=== PATIENT | female | born 2000 | race African-American/Black ===

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

== ENCOUNTER 2020-01-11 15:02 | Outpatient (CLI) | payer MEDICAID ==
[2019-10-11 19:20] VITALS: BMI 35.6
[~2020-01-11 15:02] MED LIST changes: +MACROBID100 MG PO
[2020-01-11 15:40] LABS: BASOPHILS 0.1 % (0-2); EOSINOPHILS 1.3 % (0-7); HEMATOCRIT 27.9 % (36.0-48.0); IMMATURE GRANULOCYTES 0.3 % (0-5); LYMPHOCYTES 21.5 % (15-50); MCH 29.5 pg (26.0-34.0); MCHC 32.3 g/dL (31.0-37.0); MCV 91.5 fL (80.0-100.0); MONOCYTES 6.6 % (2-11); NEUTROPHILS 70.2 % (40-80); PLATELET COUNT 226 10x3/uL (130-400); RBC 3.05 10x6/uL (4.00-5.40); RDW 13.6 % (11.5-14.5); WBC 6.8 10x3/uL (4.8-10.8)
[2020-01-11 15:44] LABS: CALC OSMOLALITY 270 mosm/kg (275-300); CALCIUM 8.3 mg/dL (8.5-10.1); CARBON DIOXIDE 26.1 mmol/L (21.0-32.0); CHLORIDE - SERUM 104 mmol/L (98-107); CREATININE - SERUM 0.6 mg/dL (0.6-1.3); GLUCOSE 86 mg/dL (74-106); POTASSIUM - SERUM 3.2 mmol/L (3.5-5.1); SODIUM 138 mmol/L (136-145); UREA NITROGEN 2 mg/dL (7-18); eGFR NON AFRICAN AMERICAN > 90 mL/min (90-120)
[2020-01-11 15:50] LABS: ALKALINE PHOSPHATASE 62 U/L (30-120); ALT (SGPT) 13 U/L (10-68); BILIRUBIN - INDIRECT 0.17 mg/dL (0.00-1.00); BILIRUBIN - TOTAL 0.22 mg/dL (0.2-1.3); PROTEIN - SERUM 7.1 g/dL (6.4-8.2); URIC ACID 3.3 mg/dL (2.6-7.2)
[2020-01-11 15:51] LABS: BILIRUBIN - DIRECT 0.05 mg/dL (0.00-0.30)
[2020-01-13 13:02] LABS: PROTEIN - URINE 12.7 mg/dL (0.0-11.9)
== END 2020-01-11 17:01 | disposition home or self-care (01) ==
LOC: D.LDO 15:02
PROVIDERS: ATTEND Obstetrics & Gynecology
DX: O26.899 Other specified pregnancy related conditions, unspecified trimester (principal); Z3A.00 Weeks of gestation of pregnancy not specified

== ENCOUNTER 2020-02-16 09:49 | Outpatient (CLI) | payer MEDICAID ==
[2019-10-11 19:20] VITALS: BMI 35.6
== END 2020-02-16 11:05 | disposition home or self-care (01) ==
LOC: D.LDO 09:49
PROVIDERS: ATTEND Obstetrics & Gynecology
DX: O14.03 Mild to moderate pre-eclampsia, third trimester (principal); Z3A.30 30 weeks gestation of pregnancy

== ENCOUNTER 2020-02-20 14:17 | Outpatient (CLI) | payer MEDICAID ==
[2019-10-11 19:20] VITALS: BMI 35.6
== END 2020-02-20 15:19 | disposition home or self-care (01) ==
LOC: D.LDO 14:17
PROVIDERS: ATTEND Obstetrics & Gynecology
DX: O26.893 Other specified pregnancy related conditions, third trimester (principal); Z3A.31 31 weeks gestation of pregnancy; R03.0 Elevated blood-pressure reading, without diagnosis of hypertension

== ENCOUNTER 2020-02-23 12:08 | Outpatient (CLI) | payer MEDICAID ==
[2019-10-11 19:20] VITALS: BMI 35.6
== END 2020-02-23 12:58 ==
LOC: D.LDO 12:08
PROVIDERS: ATTEND Obstetrics & Gynecology
DX: O13.3 Gestational [pregnancy-induced] hypertension without significant proteinuria, third trimester (principal); Z3A.31 31 weeks gestation of pregnancy

== ENCOUNTER 2020-02-29 14:39 | Outpatient (CLI) | payer MEDICAID ==
[2019-10-11 19:20] VITALS: BMI 35.6
== END 2020-02-29 14:42 | disposition home or self-care (01) ==
LOC: D.LDO 14:39
PROVIDERS: ATTEND Obstetrics & Gynecology
DX: O16.3 Unspecified maternal hypertension, third trimester (principal); Z3A.32 32 weeks gestation of pregnancy

== ENCOUNTER 2020-03-04 15:27 | Outpatient (CLI) | payer MEDICAID ==
[2019-10-11 19:20] VITALS: BMI 35.6
== END 2020-03-04 17:00 | disposition home or self-care (01) ==
LOC: D.LDO 15:27
PROVIDERS: ATTEND Obstetrics & Gynecology
DX: O16.3 Unspecified maternal hypertension, third trimester (principal); Z3A.33 33 weeks gestation of pregnancy

== ENCOUNTER 2020-03-07 16:00 | Outpatient (CLI) | payer MEDICAID ==
[2019-10-11 19:20] VITALS: BMI 35.6
== END 2020-03-07 16:57 | disposition home or self-care (01) ==
LOC: D.LDO 16:00
PROVIDERS: ATTEND Obstetrics & Gynecology
DX: O24.419 Gestational diabetes mellitus in pregnancy, unspecified control (principal)

== ENCOUNTER → 2020-03-08 16:37 | Outpatient (CLI) | payer MEDICAID ==
[2019-10-11 19:20] VITALS: BMI 35.6
== END | disposition home or self-care (01) ==
LOC: D.LDO 16:37
PROVIDERS: ATTEND Obstetrics & Gynecology
DX: O26.899 Other specified pregnancy related conditions, unspecified trimester (principal)

== ENCOUNTER → 2020-03-11 13:19 | Outpatient (CLI) | payer MEDICAID ==
[2019-10-11 19:20] VITALS: BMI 35.6
== END | disposition home or self-care (01) ==
LOC: D.LDO 13:19
PROVIDERS: ATTEND Obstetrics & Gynecology
DX: O10.919 Unspecified pre-existing hypertension complicating pregnancy, unspecified trimester (principal)

== ENCOUNTER 2020-03-14 10:15 | Outpatient (CLI) | payer MEDICAID ==
[2019-10-11 19:20] VITALS: BMI 35.6
== END 2020-03-14 11:50 ==
LOC: D.LDO 10:15
PROVIDERS: ATTEND Obstetrics & Gynecology
DX: O16.3 Unspecified maternal hypertension, third trimester (principal); Z3A.34 34 weeks gestation of pregnancy

== ENCOUNTER 2020-03-18 13:00 | Outpatient (CLI) | payer MEDICAID ==
[2019-10-11 19:20] VITALS: BMI 35.6
== END 2020-03-18 14:00 | disposition home or self-care (01) ==
LOC: D.LDO 13:00
PROVIDERS: ATTEND Obstetrics & Gynecology
DX: O10.919 Unspecified pre-existing hypertension complicating pregnancy, unspecified trimester (principal)

== ENCOUNTER 2020-03-21 15:19 | Outpatient (CLI) | payer MEDICAID ==
[2019-10-11 19:20] VITALS: BMI 35.6
== END 2020-03-21 17:30 | disposition home or self-care (01) ==
LOC: D.LDO 15:19
PROVIDERS: ATTEND Student in an Organized Health Care Education/Training Program
DX: O16.3 Unspecified maternal hypertension, third trimester (principal); Z3A.35 35 weeks gestation of pregnancy

== ENCOUNTER 2020-03-25 16:15 | Outpatient (CLI) | payer MEDICAID ==
[2019-10-11 19:20] VITALS: BMI 35.6
== END 2020-03-25 17:36 | disposition home or self-care (01) ==
LOC: D.LDO 16:15
PROVIDERS: ATTEND Obstetrics & Gynecology
DX: O16.3 Unspecified maternal hypertension, third trimester (principal); Z3A.36 36 weeks gestation of pregnancy

== ENCOUNTER 2020-03-28 15:40 | Outpatient (CLI) | payer MEDICAID ==
[2019-10-11 19:20] VITALS: BMI 35.6
== END 2020-03-28 17:09 | disposition home or self-care (01) ==
LOC: D.LDO 15:40
PROVIDERS: ATTEND Obstetrics & Gynecology
DX: O16.9 Unspecified maternal hypertension, unspecified trimester (principal)

== ENCOUNTER 2020-04-01 10:49 | Outpatient (CLI) | payer MEDICAID ==
[2019-10-11 19:20] VITALS: BMI 35.6
== END 2020-04-01 12:55 | disposition home or self-care (01) ==
LOC: D.LDO 10:49
PROVIDERS: ATTEND Obstetrics & Gynecology
DX: O24.419 Gestational diabetes mellitus in pregnancy, unspecified control (principal)

== ENCOUNTER 2020-04-04 16:20 | Outpatient (CLI) | payer MEDICAID ==
[2019-10-11 19:20] VITALS: BMI 35.6
== END 2020-04-04 16:56 | disposition home or self-care (01) ==
LOC: D.LDO 16:20
PROVIDERS: ATTEND Obstetrics & Gynecology
DX: O16.9 Unspecified maternal hypertension, unspecified trimester (principal)

== ENCOUNTER 2020-04-08 07:25 | Inpatient (IN) | payer MEDICAID ==
[~2020-04-08] VITALS: Ht 170.2 cm; Wt 122.9 kg
[2020-04-08 08:04] LABS: HEMATOCRIT 27.5 % (36.0-48.0); HEMOGLOBIN 8.6 g/dL (12-16); MCH 27.3 pg (26.0-34.0); MCHC 31.3 g/dL (31.0-37.0); MCV 87.3 fL (80.0-100.0); MEAN PLATELET VOLUME 9.2 fL (7.4-10.4); RBC 3.15 10x6/uL (4.00-5.40); RDW 14.3 % (11.5-14.5); WBC 7.1 10x3/uL (4.8-10.8)
[2020-04-08 08:11] LABS: UDS - AMPHET NEGATIVE QUAL (NEGATIVE); UDS - BARB NEGATIVE QUAL (NEGATIVE); UDS - BENZO NEGATIVE QUAL (NEGATIVE); UDS - COCAINE NEGATIVE QUAL (NEGATIVE); UDS - OPIATE NEGATIVE QUAL (NEGATIVE); UDS - PCP NEGATIVE QUAL (NEGATIVE); UDS - THC NEGATIVE QUAL (NEGATIVE)
[2020-04-08 08:12] VITALS: BP 132/66; Ht 170.2 cm; Wt 122.9 kg
--- NOTE | 2020-04-08 10:22 | MORECARE ---
CASE MANAGEMENT DISCHARGE SUMMARY PATIENT: JAVI FORD UNIT: [id number] ADM DATE: 04/08/20 AGE: 20 : 00 SEX: F ROOM/BED: D.1274 AUTHOR: ALIA GOFF PHYSICIAN: REFERRING PHYSICIAN: KIMBERLY HERNADEZ MD DATE OF SERVICE: 04/08/20 Discharge Plan Patient Name: JAVI FORD Facility: [facility]:[place] : [address] Planned Disposition: Home Anticipated Discharge Date: 04/11/20 Discharge Date: Expected LOS: 3 Initial Reviewer: [email or web address] Initial Review Date: 04/08/2020 Generated: 04/08/20 11:22 am Patient Name: JAVI FORD Page 14944 at 1022 All edits/amendments must be made on the electronic document DICTATION DATE: 04/08/20 1022 ZOOLOGY TEACHER: ONEIL 04/08/20 1022 RPT#: [id number] DC DATE: STATUS: ADM IN [facility] [address] [place] [address] END OF REPORT
--- NOTE | 2020-04-08 13:30 | NUR ---
RECEIVED PT POST REPEAT SECTION BY DR. HERNADEZ FROM RR BY BED TO ROOM 1222. PT AWAKE, ALERT, ASSESSMENT COMPLETED, SEE FLOWSHEET. SCD'S ON AND CONNECTED TO MACHINE. ABDOMEN PALPATES SOFT, FUNDUS FIRM, U/2, MODERATE RUBRA LOCHIA, NO CLOTS. ICE PACK PLACED TO GOWN OVER INCISION. BALLESTEROS CATH IN PLACE, DRAINING DARK YELLOW URINE. LARGE ICE WATER SERVED TO PT. SEE EMAR FOR ALL PAIN MEDS ADM BY THIS RN. PT DENIES N/V, SOB, OR DIFFICULTY BREATHING. SR UP X2, CALL LIGHT AND PHONE WITHIN REACH.
[2020-04-08 13:34] VITALS: BP 98/58
[2020-04-08 13:45] VITALS: BP 128/72; BP 130/79
[2020-04-08 14:00] VITALS: BP 128/80
--- NOTE | 2020-04-08 14:00 | NUR ---
TO ROOM, FUNDUS FIRM, U/1, SMALL RUBRA LOCHIA, NO CLOTS. PERICARE GIVEN AND PERIPADS CHANGED. LARGE ICE WATER PROVIDED. PT USING I/S WELL. DENIES N/V, SOB, OR DIFFICULTY BREATHING. SEE EMAR FOR ALL MEDS ADM BY THIS RN. SRUP X2, CALL LIGHT AND PHONE WITHIN REACH.
--- NOTE | 2020-04-08 15:00 | NUR ---
TO ROOM, FUNDUS FIRM, U/1, SMALL RUBRA LOCHIA, NO CLOTS. PERIPAD CHANGED. DENIES ALL OTHER NEEDS AT THIS TIME. PT IS TOLERATING CLEAR LIQUIDS, ANALI LEMON HAMILTON SERVED TO PT. SRUP X2, CALL LIGHT AND PHONE WITHIN REACH.
--- NOTE | 2020-04-08 18:30 | NUR ---
TO PT'S ROOM, PT IS SITTING UP IN THE BED, TALKING TO VISITOR. PT DENIES SOB, DIZZINESS OR DIFFICULTY BREATHING. FUNDUS FIRM, U/2, SMALL RUBRA LOCHIA, ONE SMALL QUARTER SIZED CLOT EXPELLED, PERICARE GIVEN WITH WARM WET WASHCLOTHS, NEW PERIPAD ON AND CHUX CHANGED. PT REPOSITIONED TO HER LEFT TILT. PT USING INCENTIVE SPIROMETER WELL. ABDOMEN PALPATES SOFT, NEW ICE PACK PLACED OVER GOWN TO INCISION. LARGE ICE WATER SERVED. TOLERATING CLEAR LIQUIDS WELL. DENIES ALL OTHER NEEDS. SRUP X2, CALL LIGHT AND PHONE WITHIN REACH.
--- NOTE | 2020-04-08 19:30 | NUR ---
ROUNDS MADE, INFORMED PT THAT I WILL BE BACK SHORTLY TO DO ASSESSMENT, PT VERBALIZES UNDERSTANDING, DENIES NEEDS AT THIS TIME
--- NOTE | 2020-04-08 20:12 | NUR ---
DR HERNADEZ NOTIFIED REGARDING POST OP ORDERS, RECEIVED 12 HOUR POST OP ORDERS, SEE ORDERS, READ BACK AND VERIFIED
--- NOTE | 2020-04-08 20:45 | NUR ---
PT BOTTLE FEEDING INFANT AT THIS TIME, ADM TORADOL SIVP PER MD ORDERS, SEE EMAR, INFORMED PT THAT I WILL COME BACK WHEN SHE IS FINISHED FEEDING , PT VERBALIZES UNDERSTANDING, DENIES FURTHER NEEDS AT THIS TIME
[2020-04-08 21:17] VITALS: BP 136/74
--- NOTE | 2020-04-08 21:17 | NUR ---
PT FINISHED FEEDING , TO OPEN CRIB CART, ASSESSMENT PER FLOW SHEET, VS OBTAINED, IV IN RIGHT WRIST INTACT WITH NO REDNESS OR EDEMA INFUSING VIA PUMP NS WITH PITOCIN AT 125 ML/HR, SALINE LOCK TO LEFT AC INTACT WITH NO REDNESS OR EDEMA, BIKINI INC WITH LARGE DRESSING CDI WITH NO DRAINAGE NOTED, FRESH ICE PACK TO ABD, FF, ML, U/1, LITE BLEEDING NOTED WITH NO CLOTS, TONI AND FOLE CARE DONE WITH WET WARM WASH CLOTHS, WHITE CHUX AND TONI PAD CHANGED, BALLESTEROS CATH INTACT DRAINING LIGHT YELLOW URINE, PT REPORT FLATUS, SCD'S ON AND WORKING PROPERLY, POC DISCUSSED WITH PT REGARDING 12 HOUR POST OP ORDERS, PT VERBALIZES UNDERSTANDING, PT REQUESTED AND SERVED FRESH H20, DENIES FURTHER NEEDS, BED IN LOW POSITION, SIDE RAILS X 2, CALL LIGHT IN REACH
--- NOTE | 2020-04-08 22:13 | NUR ---
PT COMMERCIAL SERVICE TECHNICIAN LIGHT, REQUESTED AND HANDED INFANT TO PT, PT DENIES FURTHER NEEDS
--- NOTE | 2020-04-08 23:23 | NUR ---
PT BABY ATTENDANT LIGHT, PT REQUESTED AND HANDED , PT PROVIDED DIAPER AND WIPES, REFUSES ASSISTANCE WITH DIAPER CHANGE, PT DENIES FURTHER NEEDS
[2020-04-09 00:35] VITALS: BP 124/76
--- NOTE | 2020-04-09 00:35 | NUR ---
PT AWAKE, HOLDING , NSY NURSE IN ROOM, TAKES BACK TO NSY VIA OPEN CRIB CART, POC DISCUSSED WITH PT, INFORMED PT THAT I BROUGHT HER PAIN MED, PT STATES "I'M NOT HURTING", PT REPORTS PAIN 0/10, DENIES NEEDS FOR PAIN MED, IV CONVERTED TO SALINE LOCK, FLUSHED WITH 10MLS OF NS WITH NO DIFFICULTY, SWAB CAPS PLACED, BALLESTEROS CATH REMOVED, TIP INTACT, EMPTIED 2000 MLS OF DARK YELLOW URINE, PT INST ON AND VERBALIZES UNDERSTANDING OF USING CALL LIGHT WHEN NEEDING TO VOID, LITE BLEEDING NOTED, TONI CARE DONE WITH WET WARM WASH CLOTHS, NO CLOTS NOTED, TONI PAD CHANGED, FRESH ICE PACK TO ABD, SCD'S CONTINUE ON AND WORKING PROPERLY, VS OBTAINED, PT DENIES NEEDS AT THIS TIME
--- NOTE | 2020-04-09 02:23 | NUR ---
PT RESTING WITH EYES CLOSED, RESP QUIET, NO DISTRESS NOTED, LEFT UNDISTURBED AT THIS TIME
[2020-04-09 03:54] VITALS: BP 136/68
--- NOTE | 2020-04-09 03:54 | NUR ---
PT AWAKE, VS OBTAINED, SALINE LOCK FLUSHED, ADM TORADOL DILUTED IN 5MLS OF NS, SIVP, PER MED ORDERS, SEE EMAR, SALINE LOCK FLUSHED, SCD'S DISCONNECTED, PT UP TO BR WITH ASSISTANCE, GAIT STEADY, VOIDED 500 MLS OF LIGHTLY BLOOD TINGED URINE BY SELF WITH NO DIFFICULTY, ASSISTED PT WITH TONI CARE, TONI PANTIES, PAD AND CLEAN GOWN, PT BACK TO BED, FRESH ICE PACK, SCD'S RECONNECTED AND WORKING PROPERLY, FRESH H20 SERVED, PT DENIES FURTHER NEEDS, INFANT IN OPEN CRIB CART AT BEDSIDE
--- NOTE | 2020-04-09 06:12 | NUR ---
UPON ENTERING ROOM, PT IS RESTING WITH EYES CLOSED, HOLDING , PT AROUSES TO SOFT VERBAL STIMULATION, PT INST ON AND VERBALIZES UNDERSTANDING ABOUT NOT SLEEPING WITH INFANT IN ARMS OR IN BED, PT DENIES NEEDS OR PAIN AT THIS TIME
--- NOTE | 2020-04-09 06:55 | NUR ---
REPORT RECIEVED FROM Barrie GUALLPA RN.
[2020-04-09 07:45] VITALS: BP 119/56
--- NOTE | 2020-04-09 07:55 | NUR ---
TO ROOM FOR ASSESSMENT. SEE FLOWSHEET. ABD. DRESSING INTACT. FUNDUS FIRM 1 BELOW THE UMBILICUS WITH SMALL/SCANT RUBRA LOCHIA. RED DRAINAGE NOTED AT IV SITE AT LEFT AC AND PT C/O OF THIS SITE BEING TENDER. IV D/C'D WITH CATHETER INTACT; PRESSURE APPLIED, NO BLEEDING NOTED. BANDAGE APPLIED. SALINE LOCK IN RIGHT WRIST FLUSHED EASILY WITH 10CC NS; CLAMPED AND CAPPED. PAIN MEDICATION OFFERED; PT DECLINED AT THIS TIME STATING SHE IS NOT HURTING. NO OTHER NEEDS OR CONCERSN VOICED AT THIS TIME.
[2020-04-09 08:55] LABS: HEMATOCRIT 28.3 % (36.0-48.0); HEMOGLOBIN 8.9 g/dL (12-16); MCH 27.3 pg (26.0-34.0); MCHC 31.4 g/dL (31.0-37.0); MCV 86.8 fL (80.0-100.0); MEAN PLATELET VOLUME 8.5 fL (7.4-10.4); RBC 3.26 10x6/uL (4.00-5.40); RDW 14.2 % (11.5-14.5)
--- NOTE | 2020-04-09 09:00 | NUR ---
DR. STEVENS ON UNIT FOR ROUNDS. IN TO SEE PT.
--- NOTE | 2020-04-09 09:10 | NUR ---
PT UP TO SHOWER. LINENS CHANGED.
[2020-04-09 09:13] LABS: WBC 9.8 10x3/uL (4.8-10.8)
--- NOTE | 2020-04-09 10:23 | NUR ---
ROUNDS MADE. PT SITTING UP IN BED WITH BABY IN ARMS. ABDOMENAL DRESSING REMOVED BY PT IN SHOWER. INCISION IS CDI WITH STERISTRIPS. OFFERED PAIN MEDICATION TO PT. DECLINED AT THIS TIME. NO NEEDS OR QUESTIONS VOICED AT THIS TIME.
[2020-04-09 11:12] LABS: RAPID PLASMA REAGIN Reactive (Non Reactive); TREPONEMA PALLIDUM AB Non Reactive (Non Reactive)
--- NOTE | 2020-04-09 11:15 | NUR ---
ROUNDS MADE. PT SITTING UP IN BED WITH INFANT IN ARMS. NO NEEDS OR CONCERNS AT THIS ITME.
--- NOTE | 2020-04-09 12:00 | NUR ---
ROUNDS MADE. PT SLEEPING. SLEEPING IN OPEN CRIB AT BEDSIDE.
--- NOTE | 2020-04-09 13:20 | NUR ---
PT REQUESTING PAIN MEDICATION. PO & IV MEDS GIVEN PER ORDERS.
--- NOTE | 2020-04-09 14:00 | NUR ---
TO ROOM TO ASSESS PAIN MED. PATIENT SLEEPING.
--- NOTE | 2020-04-09 14:40 | NUR ---
ROUNDS MADE. PT SITTING UP IN BED FEEDING BABY. NO NEEDS OR QUESTIONS AT THIS TIME.
--- NOTE | 2020-04-09 15:55 | NUR ---
ROUNDS MADE. PT. SLEEPING.
--- NOTE | 2020-04-09 16:24 | NUR ---
TO ROOM FOR VS. PT SLEEPING. VS TAKEN. PT STATES GOOD RELIEF WITH PAIN MEDS. NO NEEDS OR CONCERNS AT THIS TIME.
[2020-04-09 16:25] VITALS: BP 144/74
--- NOTE | 2020-04-09 17:51 | NUR ---
ROUNDS MADE. PT. SITTING UP IN BED FEEDING BABY. STATES PERCOCET HELPED WITH PAIN. NO NEEDS VOICED AT THIS TIME.
[2020-04-09 19:35] VITALS: BP 156/88
--- NOTE | 2020-04-09 19:35 | NUR ---
PT REC'D IN BED AT THIS TIME HOLDING . PT DENIES PAIN AT THIS TIME. FUNDUS FIRM AND MIDLINE. U/2 WITH SCANT LOCHIA NOTED. INCISION INTACT WITH STERISRIPS NOTED. NO S/S OF INFECTION NOTED. PT MEDICATED WITH SCHEDULED TORADOL. CALL LIGHT IN EASY REACH. Sherlyn HALL RN
--- NOTE | 2020-04-09 20:15 | NUR ---
PT REMAINS UP WALKING AT THIS TIME. Sherlyn HALL RN
--- NOTE | 2020-04-09 20:15 | NUR ---
PT REC'D IN BED AT THIS TIME. FEEDING INFANT. NO DISTRESS NOTED. NO NEEDS VOICED. Sherlyn HALL RN
[2020-04-09 21:05] VITALS: BP 128/73
--- NOTE | 2020-04-09 21:05 | NUR ---
PT REC'D IN BED ASLEEP AT THIS TIME. NO DISTRESS NOTED. Sherlyn HALL RN
--- NOTE | 2020-04-09 22:30 | NUR ---
PT REC'D IN BED AT THIS TIME TAKING CARE OF INFANT. PT PROVIDED WITH WATER AT THIS TIME. NO OTHER NEEDS VOICED. DENIES PAIN. Sherlyn HALL RN
--- NOTE | 2020-04-10 00:10 | NUR ---
CALLED TO PATIENT ROOM AT THIS TIME. PT STATES THAT SHE WANTS NURSE TO SEE IF INCICION IS OPEN. STERISTRIPS SATURATED WITH BRIGHT RED BLOOD. 4X4S APPLIED WITH NO OBVIOUS BLEEDING NOTED. CALLED AND MESSAGE LEFT. RETURN CALL REC'D AT 0020. REPORTED TO MD THAT SURRENT STERISTRIPS ARE SATURATED WITH FRESH BLOOD. SITE PREVIOUSLY CDI. ON THE WAY. Sherlyn HALL RN
[2020-04-10 00:12] VITALS: BP 148/86
--- NOTE | 2020-04-10 00:50 | NUR ---
DR MELISSA AT THE BEDSIDE FOR PATIENT ASSESSEMENT. STERISTRIPS REMOVED AND SURGICAL SITE CLEANED WITH NS PER MD. NEW STERISTRIPS REPLACED AT THIS TIME. WILL CONTINUE TO MONITOR. Sherlyn HALL RN
--- NOTE | 2020-04-10 01:25 | NUR ---
PT MEDICATED WITH SCHEDULED TORADOL. Sherlyn HALL RN
--- NOTE | 2020-04-10 02:10 | NUR ---
PT ASLEEP AT THIS TIME. NO DISTRESS NOTED. Sherlyn HALL RN
--- NOTE | 2020-04-10 03:04 | NUR ---
DRESSING REASESSED AT THIS TIME. SMALL AMOUNT OF BLOOD NOTED TO THE RT SIDE OF INCISION. WILL CONTINUE TO MONITOR. Sherlyn HALL RN
[2020-04-10 04:00] VITALS: BP 136/70
--- NOTE | 2020-04-10 04:00 | NUR ---
PT REC'D IN BED. RESTING WELL THIS SHIFT. VSS. DENIES PAIN THIS AM. WILL CONTIMUE TO MONITOR. Sherlyn HALL RN
--- NOTE | 2020-04-10 06:00 | NUR ---
STERISTRIPS TO ABDOMEN WITH BLOOD AT THIS TIME, SMALL AMOUNT OF BLEEDING NOTED ACROSS THE INCISION. WILL CONTINUE TO MONITOR. Sherlyn HALL RN
--- NOTE | 2020-04-10 07:22 | NUR ---
RN TO PT BS. PT RESTING IN BED BOTTLEFEEDING INFANT. SCHEDULED DOSE OF TORDAL PROVIDED TO PT AT THIS TIME. WILL RETURN FOR NAUN.
[2020-04-10 07:30] VITALS: BP 132/71
--- NOTE | 2020-04-10 09:05 | NUR ---
NAUN COMPLETE. PT DENIES DIFFICULTY VOIDING, STATES SHE IS PASSING GAS, BUT HAS NOT HAD A BM SINCE C/S. PT RATES PAIN 0/10 AND DENIES ANY NEEDS AT THIS TIME. BED IN LOW POSITION, SIDE RAILS UP TIMES 2, CALL LIGHT AND PHONE IN REACH. REMAINS AT PT BS FOR COUPLET CARE. WILL CONT TO MONITOR PT STATUS.
--- NOTE | 2020-04-10 09:25 | NUR ---
RN TO PT BS FOR ROUNDS. PT RESTING IN BED, HOLDING , PT IN NO ACUTE DISTRESS. PT DENIES ANY NEEDS AT THIS TIME. INFANT REMAINS AT PT BS FOR COUPLET CARE. WILL CONT TO MONITOR PT STATUS.
--- NOTE | 2020-04-10 11:02 | OP ---
PATIENT NAME: JAVI FORD MEDICAL RECORD: [id number] :00 LOCATION:[facility]1222 ADMISSION DATE:04/08/20 SURGEON: JULIAN HERNADEZ MD DATE OF OPERATION: 04/08/2020 PREOPERATIVE DIAGNOSES: 1. at 38 weeks gestation. 2. Preeclampsia. 3. Prior section. POSTOPERATIVE DIAGNOSES: 1. at 38 weeks gestation. 2. Preeclampsia. 3. Prior section. PROCEDURE: Repeat low transverse section. ANESTHESIA: Julian Hernadez MD BLENDING KETTLE TENDER: Angel Luis Whitten CRNA ANESTHESIOLOGIST: Dr. Kwok ANESTHETIC: General. FINDINGS: Viable female , vertex presentation, Apgars are 9 and 9, weight 6 pounds 10 ounces. Unremarkable uterus, tubes, and ovaries. Placenta is unremarkable. SPECIMENS REMOVED: Placenta. SPECIMEN DISPOSITION: Discarded. ESTIMATED BLOOD LOSS: 600 cc. FLUIDS: 1500 cc lactated Ringer's. URINE OUTPUT: 1 liter of clear urine. COMPLICATIONS: None. DRAINS: [place] to gravity. INDICATION: The patient is a 20-year-old parous female at 38 weeks gestation with preeclampsia. The patient is consented for a repeat low transverse section. DESCRIPTION OF PROCEDURE: After informed consent was assured, the patient was taken to the operating room where anesthetic is obtained. She is now placed in a leftward lateral tilt and prepped and draped. ASSESSMENT: Assessment of the anesthetic finds it to be adequate. Incision was made, carried down to the underlying layer of the fascia, which was opened in the midline and extended laterally. Rectus bellies were dissected free superiorly and inferiorly and in the midline. The peritoneum was OPERATIVE REPORT [id number] JAVI FORD entered sharply. The peritoneal opening extended with good visualization of the bladder. DeLee all-purpose retractor was inserted and bladder flap developed. The bladder blade was now reinserted into the space and a low transverse hysterotomy was performed. Infant was delivered onto the abdomen atraumatically. Cord was doubly clamped and cut and the passed to the attendant. Placenta was then delivered via Crede maneuver and the uterus exteriorized, cleared of all clot and debris. The uterus was now closed with a running chromic. The posterior cul-de-sac was irrigated. Uterus returned to the abdomen. The anterior pouch is irrigated and all clot and debris removed. Rectus bellies were reapproximated in the midline with a loose chromic stitch. Fascia was closed with a looped PDS in a running fashion. Subcutaneous irrigated, bleeding vessels cauterized, and the skin reapproximated with subcuticular closed on a Russell needle. Sterile dressing is applied. Sponge, lap, needle counts were correct times 2. The patient went to the recovery room in stable condition. The infant to the nursery. TRANSINT:[id number] Voice Confirmation ID: [id number] DOCUMENT ID: [id number] JULIAN HERNADEZ MD at 1102 CC: [id number] DICTATION DATE: 04/08/20 1257 ANALYSIS REPORTING DEVELOPER: 04/08/20 2219 ADM IN [place] [id number] [place] [address]
--- NOTE | 2020-04-10 11:23 | NUR ---
RN TO PT BS FOR ROUNDS. PT RESTING IN BED IN SEMI-FOWLERS POSITION, WITH EYES CLOSED, IN NO ACUTE DISTRESS, RESPIRATIONS EVEN AND UNLABORED. BED IN LOW POSITION, SIDE RAILS UP TIMES 2, CALL LIGHT AND PHONE IN REACH. AT PT BS FOR COUPLET CARE. WILL CONT TO MONITOR PT STATUS.
[2020-04-10 12:09] VITALS: BP 122/74
--- NOTE | 2020-04-10 12:09 | NUR ---
RN TO PT BS. PT RESTING IN BED IN SEMI-FOWLERS POSITION, FEEDING . VS TAKEN AND WNL. PT DENIES ANY NEEDS AT THIS TIME. BED IN LOW POSITION, SIDE RAILS UP TIMES 2, CALL LIGHT AND PHONE IN REACH. WILL CONT TO MONITOR PT STATUS.
--- NOTE | 2020-04-10 12:58 | NUR ---
RN CALLED TO PT BS. PT C/O PAIN, RATES 5/10, REQUESTS MEDICATION. 1 TAB PERCOCET 10 AND 1 TAB TORDAL GIVEN PO. WATER MUG REFRESHED. PT DENIES ANY FURTHER NEEDS AT THIS TIME. BED IN LOW POSITION, SIDE RAILS UP TIMES 2, CALL LIGHT AND PHONE IN REACH. WILL CONT TO MONITOR PT STATUS.
--- NOTE | 2020-04-10 14:06 | NUR ---
18G SL TO RIGHT WRIST D/C'D AT THIS TIME, TIP INTACT, PRESSURE DRESSING PLACED TO SITE.
--- NOTE | 2020-04-10 17:25 | NUR ---
PT GIVEN DISCHARGE INSTRUCTIONS WELL PRESCRIPTIONS FOR PAIN CONTROL POST D/C TO HOME. PT VERBALIZES UNDERSTANDING AND DENIES QUESTIONS, SIGNS CHART COPIES OF INSTRUCTIONS. PT INSTRUCTED NURSERY WILL COME DISCHARGE SHORTLY AND THEN SHE WILL BE TAKEN OUT VIA W/C FOR D/C TO HOME.
== END 2020-04-10 17:30 | disposition home or self-care (01) | DRG 788 ==
LOC: D.LD 07:25 → D.WS 07:25 → D.SDCHOLD 09:00 → D.LD 10:45 → D.WS 13:33
PROVIDERS: ADMIT Obstetrics & Gynecology; ATTEND Obstetrics & Gynecology
PROC: 10D00Z1 Extraction of Products of Conception, Low, Open Approach (ICD-10-PCS; principal; 2020-04-08 09:00)
DX: O34.211 Maternal care for low transverse scar from previous cesarean delivery (principal); O14.94 Unspecified pre-eclampsia, complicating childbirth; Z3A.38 38 weeks gestation of pregnancy; Z37.0 Single live birth